=== PATIENT | female | born 1950 | race Caucasian/White ===

== ENCOUNTER 2021-12-11 08:59 | Outpatient (CLI) | payer OTHER, SELFPAY ==
--- NOTE | 2021-12-11 09:15 | CRLHL7_ITS ---
For Patients: As a result of the Century Cures Act, medical imaging exams and procedure reports are released immediately into your electronic medical record. You may view this report before your referring provider. If you have questions, please contact your health care provider. BILATERAL SCREENING MAMMOGRAM WITH COMPUTER-AIDED DETECTION AND TOMOSYNTHESIS TECHNIQUE: CC and MLO views were obtained. These mammographic images have been obtained using full-field digital technique. These mammographic images were interpreted with the benefit of computer-aided detection. Breast Tomosynthesis was used in this interpretation. COMPARISON FILM: 11/26/20, 11/21/19, 07/19/18. FINDINGS: There are scattered areas of fibroglandular density IMPRESSION: There is no radiographic evidence for malignancy. ASSESSMENT: BI-RADS Category 1: Negative RECOMMENDATION: Routine screening mammogram in 1 year. A lay language report of this examination will be provided to the patient. Duncan Reynolds M.D. Diagnostic Radiologist [email or web address] [place]/Dictated by: Duncan Reynolds MD @ 12/11/2021 10:24:00 AM (Electronically Signed)
== END 2021-12-11 09:00 | disposition home or self-care (01) ==
LOC: MAMMO 09:01
PROVIDERS: Visit Provider Internal Medicine
DX: Z12.31 Encounter for screening mammogram for malignant neoplasm of breast (principal)
CPT/HCPCS: 77063; 77067

== ENCOUNTER 2022-08-31 15:30 | Outpatient (RCR) | payer OTHER, SELFPAY ==
--- NOTE | 2022-08-10 16:31 | PT.OPEX ---
PT [facility] Eval PT [facility] Outpatient Eval Start: 08/10/22 15:21 Freq: Status: Active Protocol: Document 08/10/22 15:28 KOFFI (Rec: 08/10/22 15:31 KOFFI [id number]) E-signed By Osman Garcia DPT, MS Physical Therapy Outpatient Evaluation Insurance Information Recert Due Date 11/08/22 Insurance Name Medicare B,Other; See Comments Insurance Information/Comments [employer] Medical Diagnosis Muscle weakness (generalized) Treating Diagnosis R knee pain, imbalance, gait dysfunction, deconditioning, and B (R>L) LE weakness Subjective Subjective Pt is a 72 y.o. female who presents to PT with c/o R knee stiffness and weakness of insidious origin over the past 6-8 months. Denies injury with gradual onset of sxs especially after this icy winter which has limited activity levels. Noticed how weak her R LE has become trying to walk down bleachers without a railing. Goes to [address] [place] [address] 3x per week for [employer]inv[employer] classes. Lives in single level [id number] suit with 1 step to enter her single-story home. Previously used LE strengthening machines but stopped back in the fall. Radiographs found R tricompartmental mild OA but pt describes minimal pain. PMH includes previous breast CA in remission. AGGR factors: Descending stairs, uneven surfaces, squatting. ALLEV factors: rest. Pt?s goal is to improve safety with stairs and gardening. Pain Comments 0-3/10 Current Work Status Retired Precautions Therapy Limitations/Systems Review Not Limited Objective Functional Test Performed & Score LEFS: 30 Assessment Assessment/Impression Objectively pt displays imbalance, gait dysfunction, deconditioning, and B (R>L) LE weakness. Overall normal B LE strength except for R glute med and quad. Corrected exercises pt is performing at [address] to decrease speed and reliance on her UEs for balance. Dynamic and static balance impairments leading to compensations with gait and difficulty with stairs. Improved R knee flex ROM to 125 deg since MD visit with quad stretching being effective. She will benefit greatly from continued skilled therapy to address these limitations. Plan of Care Rehabilitation Potential Excellent Physical Therapy Goals Long-term therapy goals to be completed in 10 weeks: 1. Pt will be independent and compliant with HEP for correction sx management. 2. Pt will display improved B hip flex, ABD and ext strength of 5/5 to improve quality of gait. 3. Pt will be able to walk for >15 min with R knee pain <2/ 10 to improve cardiovascular health. 4. Pt will report >50% improvement in LEFS questionnaire to significantly improve baylee to daily activities. Coordination/Communication With Referral Source Treatment Plan/Direct Interventions Neuromuscular Re-ed, Therapeutic Exercises Frequency/Duration 1x per week for at least 6-10 visits, decreasing visit frequency as able. Patient Will Be Discharged From Therapy Completion of LTG(s),Skills Plateau,Independent w/HEP, Independently Progressing Evaluation Billing Untimed Code Treatment Minutes 24 Complexity Moderate Certification Information Initial Certification Date 08/10/22 Ending Certification Date 11/08/22 Provider Signature Shows Agreement With POC & Medical Necessity Physician Signature & Date Requested Please Sign/Date Here Physician Comment/Change : Physician NPI Number #
== END 2022-12-29 23:59 | disposition home or self-care (01) ==
PROVIDERS: PCP Internal Medicine; Visit Provider Physician Assistant Surgical
DX: M62.81 Muscle weakness (generalized) (principal); M25.561 Pain in right knee; Z51.89 Encounter for other specified aftercare
CPT/HCPCS: 80048; 80061; 84443; 97110; 97162

== ENCOUNTER 2022-11-11 12:17 | Outpatient (CLI) | payer OTHER, SELFPAY ==
[2022-11-11] MEDS: TETRACAINE 0.5% OPHTH 1 DROP EYE-BOTH ×3 (12:26→13:01)
[2022-11-11] MEDS: BRIMONIDINE TARTRATE 0.2% OPHTH 1 DROP EYE-BOTH ×2 (12:28→13:12)
[2022-11-11 12:31] VITALS: BP 130/81; PULSE 55; RESP 16; O2SAT 99
--- NOTE | 2022-11-11 13:29 | W.PM.OPTPROC ---
Procedure Note Date of procedure: 11/11/22 Will [facility] bill your pro fee for this procedure?: Yes Procedure Description: SURGEON: Antonette Martinez MD PREOPERATIVE DIAGNOSIS: Posterior capsular opacity, right and left eye POSTOPERATIVE DIAGNOSIS: Posterior capsular opacity, right and left eye PROCEDURE: YAG laser capsulotomy, both eyes ANESTHESIA: Topical. ESTIMATED BLOOD LOSS: None PATHOLOGY SPECIMEN: None COMPLICATIONS: None INDICATIONS: See consult note for details. The risks, benefits and alternatives of the procedure were explained to the patient, who elected to proceed and signed informed consent to do so. PROCEDURE: The patient was brought to the pre-holding area where the right and left eyes were identified as the operative eyes. I placed my initials above the eyes. The following was given in both eyes: The patient received 2 sets of 1 drop of 0.5% tetracaine and 1 drop of 1% tropicamide. They also received 1 drop of 0.2% brimonidine. They received 1 drop of 0.5% tetracaine immediately prior to bringing them back for the procedure. The patient was then brought to the procedure room where the right and left eyes were again identified as the operative eyes. A YAG Emerson capsulotomy lens was placed on the right eye. The laser was administered using a total number of 22 shots with an energy of 2.4 mJ per shot for a total energy of 53 mJ. The patient tolerated the procedure well. Pt. had liquified cortical material. A YAG Emerson capsulotomy lens was placed on the left eye. The laser was administered using a total number of 9 shots with an energy of 2.4 mJ per shot for a total energy of 22 mJ. The patient tolerated the procedure well. DISPOSITION: The patient was taken back to the pre-holding area and given 1 drop of 0.2% brimonidine in both eyes. They were discharged to home in stable condition. The patient was instructed to call me or go to the emergency department with any sudden change, including dramatic loss of vision, severe pain in the eye or eyebrow region, nausea, or vomiting. The patient was instructed to use the 0.2% brimonidine 1 drop 2 times a day in both eyes for 1 week. The patient will follow up in the clinic in 1-2 weeks.
== END 2022-11-11 13:13 | disposition home or self-care (01) ==
LOC: EYE PRC 12:18
PROVIDERS: PCP Internal Medicine; Visit Provider Ophthalmology
DX: H26.9 Unspecified cataract (principal)
CPT/HCPCS: 66821; A9270

== ENCOUNTER 2023-01-13 14:41 | Outpatient (CLI) | payer OTHER, SELFPAY ==
--- NOTE | 2023-01-13 15:00 | CRLHL7_ITS ---
For Patients: As a result of the Cures Act, medical imaging exams and procedure reports are released immediately into your electronic medical record. You may view this report before your referring provider. If you have questions, please contact your health care provider. BILATERAL SCREENING MAMMOGRAM WITH COMPUTER-AIDED DETECTION AND TOMOSYNTHESIS TECHNIQUE: CC and MLO views were obtained. These mammographic images have been obtained using full-field digital technique. These mammographic images were interpreted with the benefit of computer-aided detection. Breast Tomosynthesis was used in this interpretation. COMPARISON FILM: 12/11/21, 11/26/20, 11/21/19. FINDINGS: There are scattered areas of fibroglandular density IMPRESSION: There is no radiographic evidence for malignancy. ASSESSMENT: BI-RADS Category 1: Negative RECOMMENDATION: Routine screening mammogram in 1 year. A lay language report of this examination will be provided to the patient. Duncan Reynolds M.D. Diagnostic Radiologist [email or web address] [email or web address]/[email or web address] / be/Dictated by: Duncan Reynolds MD @ 01/14/2023 12:43:00 PM (Electronically Signed)
== END 2023-01-13 14:42 | disposition home or self-care (01) ==
LOC: MAMMO 14:42
PROVIDERS: PCP Internal Medicine; Visit Provider Internal Medicine
DX: Z12.31 Encounter for screening mammogram for malignant neoplasm of breast (principal)
CPT/HCPCS: 77063; 77067

== ENCOUNTER 2023-06-14 12:22 | Outpatient (CLI) | payer OTHER, SELFPAY | END 2023-06-14 12:23 | disposition home or self-care (01) | LOC: NFLDREF 06-30 11:47 | PROVIDERS: PCP Internal Medicine; Referring Provider Internal Medicine; Visit Provider Registered Nurse | DX: R30.0 Dysuria (principal); N39.0 Urinary tract infection, site not specified | CPT/HCPCS: 87086 ==

== ENCOUNTER 2023-08-17 09:31 | Outpatient (CLI) | payer OTHER, SELFPAY | END 2023-08-17 09:32 | disposition home or self-care (01) | LOC: NFLDREF 08-18 06:44 | PROVIDERS: PCP Internal Medicine; Referring Provider Internal Medicine; Visit Provider Internal Medicine | DX: E03.9 Hypothyroidism, unspecified (principal); E78.5 Hyperlipidemia, unspecified; I10 Essential (primary) hypertension | CPT/HCPCS: 80048; 80061; 84443 ==

== ENCOUNTER 2024-03-28 10:05 | Outpatient (CLI) | payer OTHER, SELFPAY ==
--- NOTE | 2024-03-28 10:15 | CRLHL7_ITS ---
For Patients: As a result of the Century Cures Act, medical imaging exams and procedure reports are released immediately into your electronic medical record. You may view this report before your referring provider. If you have questions, please contact your health care provider. BILATERAL SCREENING MAMMOGRAM WITH COMPUTER-AIDED DETECTION AND TOMOSYNTHESIS TECHNIQUE: CC and MLO views were obtained. These mammographic images have been obtained using full-field digital technique. These mammographic images were interpreted with the benefit of computer-aided detection. Breast Tomosynthesis was used in this interpretation. COMPARISON FILM: 01/13/23, 12/11/21, 11/26/20. FINDINGS: There are scattered areas of fibroglandular density IMPRESSION: There is no radiographic evidence for malignancy. ASSESSMENT: BI-RADS Category 1: Negative RECOMMENDATION: Routine screening mammogram in 1 year. A lay language report of this examination will be provided to the patient. Duncan Reynolds M.D. Diagnostic Radiologist [email or web address] [place]/[email or web address] kinney/Dictated by: Duncan Reynolds MD @ 03/28/2024 12:12:00 PM (Electronically Signed)
== END 2024-03-28 10:06 | disposition home or self-care (01) ==
LOC: MAMMO 10:06
PROVIDERS: PCP Internal Medicine; Visit Provider Internal Medicine
DX: Z12.31 Encounter for screening mammogram for malignant neoplasm of breast (principal)
CPT/HCPCS: 77063; 77067

== ENCOUNTER 2024-10-24 09:34 | Outpatient (CLI) | payer OTHER, SELFPAY | END 2024-10-24 09:35 | disposition home or self-care (01) | PROVIDERS: PCP Internal Medicine; Visit Provider Internal Medicine | DX: I10 Essential (primary) hypertension (principal); E03.9 Hypothyroidism, unspecified; E78.5 Hyperlipidemia, unspecified | CPT/HCPCS: 80048; 80061; 84439; 84443 ==

== ENCOUNTER 2025-04-03 15:00 | Outpatient (CLI) | payer OTHER, SELFPAY ==
--- NOTE | 2025-04-03 15:20 | CRLHL7_ITS ---
For Patients: As a result of the Century Cures Act, medical imaging exams and procedure reports are released immediately into your electronic medical record. You may view this report before your referring provider. If you have questions, please contact your health care provider. INDICATION: BILATERAL SCREENING MAMMOGRAM, ASYMPTOMATIC 74 Y/O FEMALE COMPARISON: 03/28/2024, 01/13/2023, 12/11/2021 TECHNIQUE: Digital mammogram in CC and MLO projections including computer-aided detection (CAD) and tomosynthesis. BREAST COMPOSITION: There are scattered areas of fibroglandular density. FINDINGS: No suspicious findings. ASSESSMENT: BI-RADS 1 Negative RECOMMENDATION: Annual screening mammogram. A lay language report of this examination will be provided to the patient. Dictated by: Duncan Reynolds MD @ 04/04/2025 10:36:36 (Electronically Signed)
== END 2025-04-03 15:01 | disposition home or self-care (01) ==
LOC: MAMMO 15:01
PROVIDERS: PCP Internal Medicine; Visit Provider Internal Medicine
DX: Z12.31 Encounter for screening mammogram for malignant neoplasm of breast (principal)
CPT/HCPCS: 77063; 77067